=== PATIENT | female | born 1955 | race Caucasian/White ===

== ENCOUNTER 2016-11-07 13:19 | Emergency (ER) | payer SELFPAY ==
[~2016-11-07 13:19] MED LIST: Z.0.NO CURRENT MEDS
[2016-11-07 13:21] VITALS: BP 137/88; PULSE 101; RESP 15; TEMP 98.1; O2SAT 98
[2016-11-07] MEDS ORDERED: IBUP800T23 PO (13:49)
[2016-11-07] MEDS ORDERED: ACYC800T PO (13:49)
--- NOTE | 2016-11-07 13:50 | PD ---
HPI Chief Complaint: Skin Problem Time Seen by Provider: 13:47 Travel History International Travel<30 days: No Contact w/Intl Traveler<30days: No Traveled to known affect area: No History of Present Illness HPI 61-year-old female presents emergency Department with complaint of a rash to her left chest that has spread to her left upper back times one week. Reports the rash is painful. Says the rash is sometimes itchy. Denies fever, vomiting. Denies new exposures to lotions, soaps, detergents, medications, foods, environmental exposures. Does not know if she had chickenpox as a child. Says her brother came in with chickenpox and she was exposed to it and had a small rash but the doctor said he didn't overdose chickenpox or mosquito bites. Denies shingles vaccination. No one else with similar symptoms. Medications or tried any treatments to alleviate her symptoms. Symptoms are mild in severity. No known allergies. Has no medical complaints. No other modifying factors or associated signs and symptoms. PFSH Past Medical History Diminished Hearing: No Menopausal: Yes Past Surgical History Appendectomy: Yes (1976) Social History Alcohol Use: No Tobacco Use: Yes (03/14 PPD/STARTED AGE 23) Substance Use: No Allergies-Medications (Allergen,Severity, Reaction): Coded Allergies: No Known Allergies (Verified , 03/21/12) Reported Meds & Prescriptions Reported Meds & Active Scripts Active Ibuprofen 800 Mg Tab 800 Mg PO Q8H PRN Acyclovir 800 Mg Tab 800 Mg PO 5 TIMES A DAY 7 Days Review of Systems Except as stated in HPI: all other systems reviewed are Neg Physical Exam Narrative GENERAL: Well-nourished, well-developed elderly, female patient, in no acute distress; afebrile, nontoxic-appearing SKIN: Warm and dry. Left chest and left upper back with erythremic grouped vesicles present in a dermatomal distribution. No drainage or edema. Signs of cellulitis. HEAD: Atraumatic. Normocephalic. EYES: Pupils equal and round. No scleral icterus. No injection or drainage. ENT: Mucosa pink and moist. Airway patent. NECK: Trachea midline. CARDIOVASCULAR: Regular rate and rhythm. No murmur appreciated. RESPIRATORY: No accessory muscle use. Lungs sounds clear and equal bilaterally. GASTROINTESTINAL: Rounded. MUSCULOSKELETAL: No obvious deformities. No clubbing. No cyanosis. No edema. NEUROLOGICAL: Awake and alert. Oriented 3. No obvious cranial nerve deficits. Motor grossly within normal limits. Normal speech. PSYCHIATRIC: Appropriate mood and affect; insight and judgment normal. Data Data Last Documented VS Vital Signs Date Time Temp Pulse Resp B/P (MAP) Pulse Ox O2 Delivery O2 Flow Rate FiO2 11/07/16 13:21 98.1 101 15 137/88 (104) 98 MDM Medical Decision Making Medical Screen Exam Complete: Yes Emergency Medical Condition: Yes Medical Record Reviewed: Yes Differential Diagnosis Shingles, hives, dermatitis Narrative Course 61-year-old female physical exam consistent with shingles. Patient is afebrile and nontoxic-appearing. Denies fever, vomiting. Acyclovir and ibuprofen prescribed for home. Instructed patient to follow up with primary care provider. Patient verbalizes understanding and agreement with treatment plan. Patient is medically cleared and stable for discharge. Discussed reasons to return to the emergency department. Patient agrees with treatment plan. The patients vital signs are stable and the patient is stable for outpatient follow- up and treatment. Patient discharged home, stable and in no acute distress. Diagnosis Primary Impression: Shingles rash Qualified Codes: B02.9 - Zoster without complications Referrals: [facility] Primary Care Physician Patient Instructions: General Instructions, Shingles (ED) Departure Forms: Tests/Procedures, Work Release Enter return to work date: Nov 11, 2016 Additional Instructions: Take medications as prescribed Cold, wet compresses to the rash to help relieve itching and pain as needed Cool Bath to help relieve itching and pain as needed Follow-up with a primary care provider Return to the emergency department immediately with worsening of symptoms Med/Other Pt SpecificInfo: Prescription(s) given Scripts Ibuprofen (Ibuprofen) 800 Mg Tab 800 MG PO Q8H Y for PAIN SCALE 1 TO 10, #20 TAB 0 Refills Prov: Grace BarbozaP 11/07/16 Acyclovir (Acyclovir) 800 Mg Tab 800 MG PO 5 TIMES A DAY for Mgmt Viral Infection for 7 Days, TAB 0 Refills Prov: Grace BarbozaP 11/07/16 Disposition: DISCHARGE HOME Condition: Stable Grace BarbozaP Nov 07, 2016 13:50
[2016-11-07 13:55] VITALS: PULSE 92; RESP 18; O2SAT 98
== END 2016-11-07 14:16 | disposition home or self-care (01) ==
LOC: NEPK 13:19
DX: B02.9 Zoster without complications (principal); F17.200 Nicotine dependence, unspecified, uncomplicated
CPT/HCPCS: 99283